=== PATIENT | female | born 1940 | race Caucasian/White ===

== ENCOUNTER → 2024-08-14 12:55 | Outpatient (REF) | payer MEDICARE, SELFPAY | LOC: HWRAD 12:55 | PROVIDERS: ATTENDING PHYSICIAN Internal Medicine | DX: M54.2 Cervicalgia (principal) | CPT/HCPCS: 72050 ==

== ENCOUNTER → 2025-01-01 10:25 | Outpatient (REF) | payer MEDICARE, SELFPAY | LOC: HWRCS 10:25 | PROVIDERS: ATTENDING PHYSICIAN Physician Assistant Medical; FAMILY PHYSICIAN Internal Medicine | DX: I10 Essential (primary) hypertension (principal); I34.0 Nonrheumatic mitral (valve) insufficiency | CPT/HCPCS: 93306 ==

== ENCOUNTER → 2025-06-06 09:50 | Outpatient (REF) | payer MEDICARE, SELFPAY | LOC: HWRAD 09:50 | PROVIDERS: ATTENDING PHYSICIAN Internal Medicine | DX: S40.021A Contusion of right upper arm, initial encounter (principal) | CPT/HCPCS: 73060 ==

== ENCOUNTER 2025-08-02 09:03 | Inpatient (IN) | payer MEDICARE, SELFPAY ==
[2025-07-30 17:59] VITALS: BP 160/106
[2025-07-30 18:44] LABS: Hematocrit 28.1 % (37.0-47.0); Hemoglobin 8.9 g/dL (12.0-16.0); Mean Corp Hgb Conc. 31.7 g/dL (33.0-37.0); Mean Corpuscular Volume 93.0 fL (81.0-99.0); Platelet Count 205 10^3/uL (130-400); Red Cell Dist. Width 15.4 % (11.5-14.5)
[2025-07-30 18:57] LABS: ALT (SGPT) 23 U/L (0-35); AST (SGOT) 36 U/L (14-36); Albumin 4.4 g/dl (3.5-5.0); Alkaline Phosphatase 82 U/L (38-126); Blood Urea Nitrogen 13 mg/dl (7-17); Calcium 9.3 mg/dl (8.4-10.2); Carbon Dioxide 28 mmol/L (22-30); Chloride 92 mmol/L (98-107); Glucose 89 mg/dl (70-99); Potassium 3.8 mmol/L (3.5-5.1); Sodium 131 mmol/L (135-145); Total Protein 7.0 g/dl (6.3-8.2); eGFR 54.87
[2025-07-30 19:08] LABS: Absolute Neutrophils -Man Diff 5.3 10^3/uL (1.4-6.5)
[2025-07-30 19:09] LABS: Normal RBC Morphology Yes; Platelets Checked Yes; Total Cells Counted 100
[2025-07-30 19:10] LABS: D-Dimer 6.81 ug/mlFEU (0.00-0.50)
--- NOTE | 2025-07-30 19:50 | ED.GENMED ---
History of Present Illness
General
Chief Complaint: Breathing Problem
Time Seen by Provider: 07/30/25 19:34
History of Present Illness
History of Present Illness:
Patient presents to the emergency department shortness of breath. Symptoms have been ongoing for the past 1 to 2 weeks. She is postop after a left knee replacement on July 12. She subsequently fell 1 week ago and had a wrist fracture. She
endorses healing of her lower extremity and is ambulating well. Denies any swelling in the leg. Denies chest pain.
Phy Exam
Physical Exam
Physical Exam:
GENERAL APPEARANCE: NAD, pale appearing
EYES lids/conjunctiva normal
EARS/NOSE/THROAT Mucous membranes moist, uvula midline without oral pharyngeal erythema, exudate or swelling
HEAD/NECK normocephalic atraumatic, neck is supple.
RESPIRATORY respiratory effort normal, speaks in full sentences, no accessory muscle use. Lungs clear to auscultation without rhonchi, wheezes, rales
CARDIAC Regular rate and rhythm, no edema.
ABDOMINAL Soft, ND/NT. No pulsatile masses on exam, rebound tenderness, Graves sign or pain over Mcburney's point.
MUSCLES/EXTREMITIES left lower extremity with postoperative changes after knee replacement. There is mild edema. Palpable pedal pulses. Warm. Sensation intact to light touch throughout. 5/5 strength throughout
SKIN Warm, pink and dry. No rashes
NEUROLOGICAL Speech is clear and appropriate. Normal level of consciousness. 5/5 strength in all extremities.
PSYCH Normal mood and affect. Judgement/competence is appropriate
Scores
Heart Failure Risk
Heart Failure Risk Score: Not Applicable
Course
Orders/Labs/Results
Orders:
Orders
07/30/25 18:05
Electrocardiogram (*1) Urgent
Reason for Study: Shortness of Breath
EKG- Treatment ONCE
07/30/25 18:12
Complete Blood Count/With Diff Urgent
Comprehensive Metabolic Panel Urgent
D-Dimer Urgent
Manual Differential Urgent
07/30/25 19:50
CT Chest PE Study Urgent
Comment:
Reason For Exam: sob, +ddimer
07/30/25 22:08
COVID-19 Antigen Urgent
Source: Nasal Swab
Azithromycin 500 mg/250 ml [Zithromax Infusion] 500 mg in 250 ml IV NOW
CefTRIAXone [Rocephin] 1,000 mg IV NOW STA
Abnormal Lab Results
07/30/25
18:12
RBC 3.02 L 10^6/uL
(4.20-5.40)
Hgb 8.9 L g/dL
(12.0-16.0)
Hct 28.1 L %
(37.0-47.0)
MCHC 31.7 L g/dL
(33.0-37.0)
RDW 15.4 H %
(11.5-14.5)
Lymphocytes (Manual) 11 L %
(20-51)
Monocytes (Manual) 25 H %
(2-9)
D-Dimer 6.81 H ug/mlFEU
(0.00-0.50)
Sodium 131 L mmol/L
(135-145)
Chloride 92 L mmol/L
(98-107)
Total Bilirubin 1.4 H mg/dl
(0.2-1.3)
07/30/25 18:12
07/30/25 18:12
Vital Signs
Initial and Last Documented VS:
Initial Vital Signs
Temp Pulse Resp BP Pulse Ox
98.0 F 91 16 160/106 98
07/30/25 17:59 07/30/25 17:59 07/30/25 17:59 07/30/25 17:59 07/30/25 17:59
Last Documented Vital Signs
Temp Pulse Resp BP Pulse Ox
98.0 F 83 20 125/69 97
07/30/25 17:59 07/30/25 20:00 07/30/25 20:00 07/30/25 20:00 07/30/25 20:03
*Pulse Oximetry
SaO2: 98
Oxygen Mode of Delivery: Room air
Patient hypoxic: no
*Critical Care Note
Total Time (30-74mins, 75-104mins- exclusive of procedures): Not Applicable
ED Attending Note
ED Attending Note
ED Attending Note:
Patient presents with dyspnea. She is postop after a knee replacement. She is pale appearing and has a hemoglobin of 8.9. Unclear whether this is new as prior labs are from 2007. She does not appear to have any active bleeding at this time.
Denies rectal bleeding or other external/visible bleeding. EKG showing right bundle branch block which is chronic. D-dimer is elevated. Will CT to rule out pulmonary embolism or other pulmonary causes
CTA negative for pulmonary embolism however showing numerous nodules concerning for inflammatory infectious causes. Patient is nontoxic but does appear pale. Possibilities include symptomatic anemia given her hemoglobin of 8.9. She may also have
some type of inflammatory or infectious source in her lungs. Will cover with antibiotics and admit to the hospitalist.
-
Portions of this chart may have been created with voice recognition software.� Occasional wrong word or��sound alike� substitutions may have occurred due to the inherent limitations of voice recognition software.
Discharge Plan
Departure
Patient Disposition: Admit
Date of Disposition: 07/30/25
Time of Disposition: 22:09
Presentation/result/management discussed w/ accepting MD/DO: Hospitalist
Discharge Problem:
Pneumonia, Anemia
Referrals:
Mayelin Dinero MD [Family Provider, Internal Medicine]
Interventions
Interventions:
*General Assessment Last Done: 07/30/25 17:59
*Neglect/Abuse Screening Last Done: 07/30/25 17:59
ED- Cardiac Assessment Last Done: 07/30/25 20:03
ED- Pulmonary Assessment Last Done: 07/30/25 20:03
Discharge Date and Time
Print Language: URDU
[2025-07-30 20:00] VITALS: BP 125/69
--- NOTE | 2025-07-30 22:12 | HPS.HSE ---
Addendum entered and electronically signed by Robert Edwards, DO 07/30/25 23:39:
Addendum:
Regarding abnormal EKG as outpatient - EKG here shows bifascicular block. Same seen on outpatient EKG, along with limb lead placement error causing abnormality.
No other / prior EKGs available for comparison.
Monitor on telemetry overnight for any abnormality.
No complaints of chest pain, palpitations, etc.
Addendum entered and electronically signed by Robert Edwards, DO 07/30/25 23:35:
Patient seen and examined independently. Agree with findings and plan as set forth by RUSS Robertson.
Patient is an 85y F with PMH significant for hypertension, RA and mild dementia who presents to ED from her PCP office. Patient states that she had L TKA done at [facility] on 07/12. She states that she was doing well until she started to feel
more SOB about one week ago. She noted dyspnea with exertion / activity. No chest pain or palpitations. No cough or fevers / chills.
Patient had a fall on Wednesday and landed on her L side. She suffered a L wrist fracture, was again sen at [facility] and had a splint placed.
Today she was seen by her PCP and reported the complaint of dyspnea. EKG was done in the office which was reportedly abnormal and patient was sent to the ED for evaluation.
At the time of my examination patient complains of pain in the R hip / groin / anterior thigh. There is pain with passive flexion and rotation of the hip.
She states that she had a prior fall (late May) and landed on her R side.
She has no other complaints at present and appears in no acute distress.
Ass:
SOB / Fatigue
Normocytic Anemia - Unknown Type / Chronicity
RBBB / Abnormal EKG
Right Hip Pain
Left Wrist Fracture
s/p L TKA (07/12/25)
Pulmonary Nodules
Benign Hypertension
RA
Mild Dementia
Plan:
Observe overnight for further evaluation and treatment.
Heme negative stool in the ED. ? baseline Hgb. No recent / noted blood loss (? due to recent surgery).
Obtain outpatient baseline for comparison.
Check anemia work-up including iron studies, B12, etc.
Follow for changes in H&H.
X-ray of the R hip given complaint or pain / prior fall. She is s/p remote R MARISABEL.
PT evaluation.
Multiple pulmonary nodules seen on CT. No fever, leukocytosis, cough or other infectious symptoms.
Would observe off of further abx for now and monitor for any fever or new symptoms.
Follow-up / repeat imaging as an outpatient per pulm nodule protocols.
Hold HCTZ given mild hyponatremia.
Continue other home medications.
Maintain L wrist splint and follow-up with Ortho at [facility] as planned.
Original Note:
Family Physician
-
Family Physician: Mayelin Dinero
Chief Complaint
-
shortness of breath and fatigue
History of Present Illness
Patient is a 85-year-old female with past medical history significant for hypertension, hyperlipidemia, GERD, rheumatoid arthritis, dementia and depression who presented to [facility] ED for evaluation of increased shortness of breath and increased
fatigue. Patient was seen today in primary care office and was told EKG was abnormal and referred to ED for evaluation. Patient reports she has had increased shortness of breath and increased fatigue that started approximately 1 week ago. She also
notes she sustained a fall on Wednesday07/27/25 and broke her left wrist. Patient also noted recent left knee replacement on 07/12/2025 at [facility]. Patient does acknowledge dark stools for last day or two, hemeoccult negative. Patient denies any recent
illness, fever, chills, cough, chest pain, palpitations, nausea, vomitng, constipation or diarrhea.
Medical History
Past Medical History
Past Medical History: Reports Other
Additional Past Medical History:
hypertension
hyperlipidemia
GERD
rheumatoid arthritis
dementia
depression
osteopenia
polymyalgia rheumatica
Past Surgical History: Reports Other
Additional Past Surgical History:
section
Tonsillectomy
left carpal tunnel release 12/2017
left small trigger finger release 12/2017
right carpal tunnel release
right trigger finger release
Sinusitis-endoscopic sinus surgery (2012),deviated septum-septoplasty
Spinal stenosis-Back surgery
osteoarthritis-Knee replacement RIGHT - Tomas Sanders 05/2016
lumbar stenosis-Spinal fusion, lumbar; L4-5 decompression- Vicente Paris
Spinal stenosis-Back surgery - Vicente Paris (had 2 separate surgeries)
Rotator cuff tear (right)-arthroscopy 09/2002
Breast lump-Lumpectomy (2006)-Maciel Sky (RIGHT)
Left Cataract surgery- Dr. Adalberto Kimball
Right cataract- Dr. Adalberto Kimball 11/2018
Left shoulder surgery- arthroscopic tendon repair by Eliazar 01/2019
total right hip replacement on 10/08/2021 by Thong Banks at [facility] 09/2021
Middle finger right hand , unlocking surgery 06/29/2022
Left total hip replacement 07/2023
LEFT TOTAL KNEE REPLACEMENT - [facility] Garcia Jun 2025
Social History
Tobacco: Non-smoker
Alcohol: Occasional
Drug: None
Living: Alone
Family History
Family History: Other (Sister: Parkinson's Disease )
Allergies / Home Medications
Allergies reflects when Allergies were last updated in [facility].
Home Medications with original date entered in [facility]
Allergy/Medication List:
Allergies
Allergy/AdvReac Type Severity Reaction Status Date / Time
No Known Allergies Allergy Verified 07/30/25 18:04
Home Medications
aspirin 81 mg tablet,delayed release 81 mg PO BID 07/30/25
bupropion HCl 150 mg 24 hr tablet, extended release 150 mg PO DAILY 07/30/25
cranberry fruit 450 mg tablet (cranberry) 450 mg PO HS 07/30/25
donepezil 5 mg tablet 5 mg PO HS 07/30/25
escitalopram oxalate 20 mg tablet 20 mg PO DAILY 07/30/25
hydrochlorothiazide 12.5 mg tablet 12.5 mg PO DAILY 07/30/25
hydroxychloroquine 200 mg tablet 200 mg PO BID 07/30/25
qlqonjmlztcw-rtpguqwt-oumkrj tablet 1 tab PO DAILY 07/30/25
omeprazole 20 mg capsule,delayed release 20 mg PO DAILY 07/30/25
simvastatin 40 mg tablet 40 mg PO HS 07/30/25
Review of Systems
-
History Source: Patient
Constitutional: Reports Fatigue; Denies Fever or Chills
EENT: Denies Sore Throat
Respiratory: Reports Trouble Breathing (shortness of breath ); Denies Cough or Hemoptysis
Cardiac: Denies Chest Pain, Diaphoresis, Palpitations or Syncope
Abdomen/GI: Reports Black Stools (dark stools for 1-2 days ); Denies Abdominal Pain, Nausea, Vomiting or Diarrhea
: Denies Dysuria, Frequency or Urgency
Musculoskeletal: Denies Joint Pain
Skin: Denies Rash
Neurological: Denies Dizzy, Headache, Weakness or Numbness
Endocrine: Denies Polyuria or Polydipsia
Physical Exam
Vital Signs
Vital Signs
Temp Pulse Resp BP Pulse Ox
98.0 F 83 20 125/69 97
07/30/25 17:59 07/30/25 20:00 07/30/25 20:00 07/30/25 20:00 07/30/25 20:03
Physical Exam
General: Well Developed, Well Nourished, No Apparent Distress, Comfortable and Conversant
HEENT: NormoCephalic, Moist mucous membranes, PERRLA, Nose Appears Normal and Ears Appear Normal
Respiratory: Clear; No Wheezes, Rales, Rhonchi or Non Labored Respirations
Cardiac: S1/S2 and Regular Rhythm; No Murmur
GI: Soft, Non Tender, Non Distended and Normal Bowel Sounds
Rectal: Hem Negative
Musculoskeletal: No Clubbing, No Cyanosis and Other (LLE with mild edema, appears likely postoperative changes )
Skin: Warm, IV/Catheter Site and Other (Left knee incisional wound well approximated )
Neuro: Awake and AO x 3
Psych: Calm and Apparent Dementia
Laboratory Results
-
07/30/25 18:12
07/30/25 18:12
Laboratory Results
Total Bilirubin 1.4 mg/dl (0.2-1.3) H 07/30/25 18:12
AST 36 U/L (14-36) 07/30/25 18:12
ALT 23 U/L (0-35) 07/30/25 18:12
Alkaline Phosphatase 82 U/L (38-126) 07/30/25 18:12
Data Reviewed
-
CT Scan: Report Reviewed by me (Chest: Many tiny pulmonary nodules likely post inflammatory/infectious in etiology. Metastatic disease not excluded. The [facility] Pulmonary Nodule Advisory Board will be automatically informed of the
findings. No pulmonary embolus. Ascending aortic ectasia Simple left renal cyst. Too sm)
Medical Tests (Nuc Med, Echo, EKG etc): Report Reviewed by me (EKG: NORMAL SINUS RHYTHM RIGHT BUNDLE BRANCH BLOCK LEFT ANTERIOR FASCICULAR BLOCK BIFASCICULAR BLOCK )
Lab Data: Labs Reviewed by me (hgb 8.9, hct 28.1, d-dimer 6.81, Na 131)
Impression/Plan
-
IMPRESSION/PLAN:
#shortness of breath and fatigue 2/2 infectious process vs. DVT/PE vs. symptomatic anemia
increased shortness of breath and increased fatigue for 1 week
dark stools for 1-2 days
hgb 8.9, hct 28.1, d-dimer 6.81, Na 131
Hemoccult: negative
EKG: NORMAL SINUS RHYTHM
RIGHT BUNDLE BRANCH BLOCK
LEFT ANTERIOR FASCICULAR BLOCK
BIFASCICULAR BLOCK
Chest CT: Many tiny pulmonary nodules likely post inflammatory/infectious in etiology. Metastatic disease not excluded. The [facility] Pulmonary Nodule Advisory Board will be automatically
informed of the findings.
No pulmonary embolus.
Ascending aortic ectasia
Simple left renal cyst.
Too small to characterize hypodense hepatic lesion likely a cyst or hemangioma.
If the patient has emphysema, patient should be assessed for an annual low dose lung cancer CT program, as pulmonary emphysema is an independent risk factor for lung cancer.
- Admit to telemetry
- trend H/H
- check iron studies
- heme test stools with bowel movement
- Consult PT
#hypertension
- continue hydrochlorothiazide
#hyperlipidemia
- continue simvastatin
#GERD
- continue omeprazole
#rheumatoid arthritis
- continue hydroxychloroquine
#dementia
- continue donepezil
#depression
- continue bupropion and escitalopram
Code status: full code
DVT prophylaxis: SCDs
[2025-07-30] MEDS: ROCEPHIN 1000 MG IV (22:19)
[2025-07-30] MEDS: ZITHROMAX INFUSION 250 IV (22:20)
[2025-07-30] MEDS: PERCOCET 5/325 1 TABLET PO (22:37)
[2025-07-31] VITALS (7 sets, daily range): BP systolic 112–134; BP diastolic 60–71; PULSE 96; BMI 26.9
[2025-07-31 01:55] LABS: COVID-19 Antigen Negative (Negative)
--- NOTE | 2025-07-31 02:55 | PTCARENOTE ---
Pt arrived from ED via stretcher accompanied by ED staff. AAOx3. Ambulatory to bed. VSS w/o complaints of pain. Placed on tele. Pt oriented to room with call corcoran within reach.
[2025-07-31 06:51] LABS: Hematocrit 24.4 % (37.0-47.0); Hemoglobin 7.7 g/dL (12.0-16.0); Mean Corp Hgb Conc. 31.6 g/dL (33.0-37.0); Mean Corpuscular Volume 93.5 fL (81.0-99.0); Platelet Count 158 10^3/uL (130-400); Red Cell Dist. Width 15.4 % (11.5-14.5)
[2025-07-31 07:04] LABS: Blood Urea Nitrogen 11 mg/dl (7-17); Calcium 8.5 mg/dl (8.4-10.2); Carbon Dioxide 28 mmol/L (22-30); Chloride 97 mmol/L (98-107); Estimated Creatinine Clearance 45 ml/min; Glucose 72 mg/dl (70-99); Iron 23 ug/dl (37-170); Potassium 3.3 mmol/L (3.5-5.1); Sodium 133 mmol/L (135-145); eGFR > 60.00
[2025-07-31 07:13] LABS: Total Iron Binding Capacity 208 ug/dl (265-497)
[2025-07-31 07:33] LABS: Ferritin 244.0 ng/ml (11.1-264.0)
[2025-07-31 08:05] LABS: Folate > 20.0 ng/ml (2.76-20); Vitamin B12 880 pg/ml (239-931)
--- NOTE | 2025-07-31 09:55 | PTOTSP ---
Pt is able to ambulate in hallway without an assistive device with steady gait, no dizziness or lightheadedness. No acute PT needs were identified. May benefit from home care services as pt had recent TKA and a more recent fall causing left wrist
fx. Anticipate pt returning home when medically stable. PT will sign off acutely.
[2025-07-31] MEDS: LEXAPRO 20 MG PO (10:28)
[2025-07-31] MEDS: PLAQUENIL 200 MG PO ×2 (10:28→20:54)
[2025-07-31] MEDS: PROTONIX 40 MG PO (10:28)
[2025-07-31] MEDS: WELLBUTRIN XL (24 hour extended release) 150 MG PO (10:28)
[2025-07-31] MEDS: ASPIR LOW (ENTERIC COATED) 81 MG PO ×2 (10:28→20:54)
--- NOTE | 2025-07-31 13:43 | W.PN.HOSP.TC ---
Today's Communication/Plan
-
Assessment / Plan
Assessment / Plan
NAD
Scleral Anicteric
MMM
No JVD
CTABL
RRR, S1/S2
Soft, NT, ND, BS+
Warm, Dry
Shortness of breath without unclear etiology
COVID flu negative
CT PE study negative for PE
Anemia present which could be contributing however without evidence of acute active bleeding
Iron deficiency anemia
Every other day iron supplementation
Fecal occult negative per documentation
Hypertension
Continue hydrochlorothiazide
Hyperlipidemia
Continue statin
GERD
Continue PPI
Rheumatoid arthritis
Continue hydroxychloroquine
Dementia
Continue donepezil
Depression
Continue bupropion and escitalopram
Unclear if there is anything else left to do in the hospital. As there is been no further episodes of shortness of breath noted however have tried twice to get in contact with her son Dale however have been unsuccessful [facility]
Anticipated Discharge: Within 24 hours
Subjective/Interval History
-
Date of Service: July 31, 2025
Seen and examined. No new complaints. No acute overnight events.
Reviewed physical therapy note tolerated PT
Objective Data
-
Labs:
Laboratory Results
07/31/25
06:12
WBC 4.9
Hgb 7.7 L
Hct 24.4 L
Plt Count 158 D
Sodium 133 L
Potassium 3.3 L
Chloride 97 L
Carbon Dioxide 28
BUN 11
Creatinine 0.8
Glucose 72
Calcium 8.5
Vital Signs:
Vital Signs
Temp Pulse Resp BP Pulse Ox
98.2 F 89 16 117/69 95
07/31/25 11:10 07/31/25 11:10 07/31/25 11:10 07/31/25 11:10 07/31/25 11:10
--- NOTE | 2025-07-31 14:18 | CM ---
IA completed. ROBERTO given. Lives alone but will be going home to her son's house. IA based on Son's home. No insecurities identified. Congfirmed PCP, Rx, insurance and drug coverage
It is a 2 story home with 1 step at the entrance to the home and 13 steps inside to the 2nd floor.. Pt states that her son will be making a bedroom on the first floor.
She has been independent at home with ADLs.
Hx of HH, possibly at [facility]. REceived PT from them
Hx of SNF, unknown facility
Pt wishes to return home if possible. Has asked for [employer] resources: given
Plan: DC to son's home post discharge.
[2025-07-31] MEDS: KCL 40 MEQ PO (14:20)
[2025-07-31] MEDS: ARICEPT 5 MG PO (20:55)
[2025-07-31] MEDS: LIPITOR 20 MG PO (20:55)
[2025-08-01] VITALS (7 sets, daily range): BP systolic 111–149; BP diastolic 67–90; PULSE 90–91
--- NOTE | 2025-08-01 03:00 | DOWNTIME ---
There was a [employer] Downtime on 08/01/2025 from 0100 to 08/01/2025 at 0255. Downtime documentation of patient's care, including medication administrations, has been reconciled in the electronic record per guidelines. Refer to the
patient's paper chart under the miscellaneous tab to see printed paper medication records and downtime forms.
[2025-08-01] MEDS: LEXAPRO 20 MG PO (08:49)
[2025-08-01] MEDS: ASPIR LOW (ENTERIC COATED) 81 MG PO (08:50)
[2025-08-01] MEDS: WELLBUTRIN XL (24 hour extended release) 150 MG PO (08:50)
[2025-08-01] MEDS: PROTONIX 40 MG PO (08:50)
[2025-08-01] MEDS: PLAQUENIL 200 MG PO ×2 (08:50→20:28)
[2025-08-01] MEDS: FEOSOL 325 MG PO (09:34)
[2025-08-01] MEDS: KCL 270 MEQ IV (09:34)
--- NOTE | 2025-08-01 10:25 | CON.GI ---
Addendum entered and electronically signed by Lio Oropeza DO 08/01/25 15:29:
I saw and examined the patient.
The [employer] OPERATOR's note was reviewed and I agree with the note.
Comment: Ms. Griffin is a 85 y.o female with a past medical history of HTN, HLD, PMR, RA, breast cancer (s/p prior lumpectomy/XRT) and multiple orthopedic surgeries with recent TKR 07/12 who initially presented to the ED with SOB and fatigue. Patient
previously denied any overt bloody and/or dark stools on admission and reportedly had prior (-) hemoccult testing in the past. Found to have KIRA with a Hgb 8s (unknown baseline). However, the next day on admission she was found to have dark stools.
She denies any prior history of a colonoscopy or prior EGD in the past. She has been taking aspirin twice daily for her recent TKR but denies any significant NSAID use. Otherwise, she denies any unintentional weight loss, abdominal
pain/discomfort, dysphagia, nausea/vomiting or other concerning symptoms from a GI standpoint. Hemoglobin appears stable and without signs to suggest brisk GI bleeding. Clinically, suspect possible gastroduodenal erosions versus PUD given her
recently increased ASA dose. Differential also includes underlying AVMs versus potential malignancy as she told me that she never had a prior colonoscopy. Did discuss the potential need to pursue a colonoscopy if her EGD is grossly unremarkable
and she is quite hesitant to pursue this and wanted more time to think about this / discuss with family. Reasonable for now to proceed with a diagnostic EGD for further evaluation but again need to consider potential colonoscopy if her EGD is
negative for further evaluation of her iron deficiency anemia and previous darker stools despite heme-negative testing. For now, we will continue IV PPI, IV iron along with serial monitoring of her Hgb. Transfuse as needed. Okay for diet as
tolerated and keep NPO at midnight.
Discussed with primary internal medicine team. GI will continue to follow. Please call with any questions or concerns.
Original Note:
Consultation
-
Date/Time Consultation Requested: 08/01/25 1015
Date/Time Consultation Performed: 08/01/25 1025
Requesting Provider: Haider Cruz MD
Performing Provider: RUSS Wu Bryan Stone, DO
Reason for Consultation: anemia
Medical History
Chief Complaint / HPI
Chief Complaint: dark stool
History of Present Illness:
Pt is a 85yo with hx breast CA with prior lumpectomy and radiation, GERD, HTN, hyperlipidemia, PMR, RA, retinal artery embolism, depression, mild dementia, multiple orthopedic surgeries including recent TKR 07/12, sinus surgery with admission to
ER with shortness of breath for 1-2 weeks and also fall with arm fracture week prior to admission. She did not recall all the details or recent fall. On admission she is noted with hbg 8.9 then drop to 7.7 with normal BUN and black stools. Her
prior hbg was 12.4 on 06/06/[address] PE study was neg for PE.
Pt currently admits to dark stools that started today. She denies odynophagia, dysphagia, GERD, nausea, vomiting, dizziness, abdominal pain, diarrhea, constipation, or red blood in stools. Hx colonoscopy years ago did not recall EGD. Pt was
unsure of medications after recent TKR. Pt also noted with Na 131 and K down to 3.3 after admission. Iron studies with chronic disease and mild liver function elevation with AST 55, ALT 37.
Past Medical History
Past Medical History: Cancer (breast CA- lumpectomy and radiation), GERD, HTN, Hypercholesterolemia, Psychiatric (depression, mild dementia ) and Other (cataracts, UTI, PMR, RA, retinal artery embolism)
Past Surgical History: , Gynecological (lumpectomy), Orthopedic (carpel tunnel release, trigger finger release, multiple spinal surgeries, TKR, THR), Tonsilectomy and Other (sinus surgery, septoplasty, cataract surgery)
Social History
Tobacco: Non-Smoker
Alcohol: Occasional (martini daily)
Drug: None
Personal:
Living: Alone
Employment: Retired
Family History
Family History: Other (no family hx colon CA or polyps)
Allergies / Home Medications
Allergy/AdvReac Type Severity Reaction Status Date / Time
No Known Allergies Allergy Verified 07/30/25 18:04
�Medication �Instructions �Recorded
aspirin 81 mg tablet,delayed 81 mg PO BID Blood Clot 07/30/25
release Prevention/Tx
bupropion HCl 150 mg 24 hr tablet, 150 mg PO DAILY Mental 07/30/25
extended release Health/Anxiety
cranberry fruit 450 mg tablet 450 mg PO HS Supplement 07/30/25
(cranberry)
donepezil 5 mg tablet 5 mg PO HS Mental Health/Anxiety 07/30/25
escitalopram oxalate 20 mg tablet 20 mg PO DAILY Mental 07/30/25
Health/Anxiety
hydrochlorothiazide 12.5 mg tablet 12.5 mg PO DAILY Fluid 07/30/25
Retention/Swelling
hydroxychloroquine 200 mg tablet 200 mg PO BID Autoimmune Disorder 07/30/25
iykdpqdhhvat-smbfkwsq-hwmqxg tablet 1 tab PO DAILY Supplement 07/30/25
omeprazole 20 mg capsule,delayed 20 mg PO DAILY GERD 07/30/25
release
simvastatin 40 mg tablet 40 mg PO HS High Cholesterol 07/30/25
Review of Systems
-
Unable to obtain full review of systems at this time due to: Dementia (mild )
History Source: Patient and Family
Constitutional: Reports No Symptoms
EENT: Reports No Symptoms
Respiratory: Reports No Symptoms
Cardiac: Reports No Symptoms
Abdomen/GI: Reports Black Stools
: Reports No Symptoms
Musculoskeletal: Reports Other (recent TKR 07/12, + recent fall with arm fracture )
Skin: Reports Other (LE rash with bruising last few months )
Neurological: Reports Weakness
Endocrine: Reports No Symptoms
Hematologic/Lymphatic: Reports Bleeding
Vital Signs
Temp Pulse Resp BP Pulse Ox
98.1 F 84 16 128/70 97
08/01/25 07:38 08/01/25 07:38 08/01/25 07:38 08/01/25 07:38 08/01/25 08:00
Physical Exam
Exam
General: Well Developed, Well Nourished and Other (pale appearing )
HEENT: Normocephalic and Anicteric
Respiratory: Other (mild dyspnea at rest)
Cardiac: Regular Rhythm
GI: Soft, Non Tender and Non Distended
Rectal: Other (dark stool per staff )
Musculoskeletal: No Clubbing, No Cyanosis and Other (left arm with cast and some swelling )
Skin: Other (LE bruising with rash and bruising around TKR)
Neuro: Awake, Alert and Other (occasional forgetfulness )
Psych: Calm
Results
WBC 4.9 10^3/uL (4.8-10.8) 07/31/25 06:12
Hgb 7.7 g/dL (12.0-16.0) L 07/31/25 06:12
Hct 24.4 % (37.0-47.0) L 07/31/25 06:12
MCV 93.5 fL (81.0-99.0) 07/31/25 06:12
Plt Count 158 10^3/uL (130-400) D 07/31/25 06:12
Sodium 133 mmol/L (135-145) L 07/31/25 06:12
Potassium 3.3 mmol/L (3.5-5.1) L 07/31/25 06:12
Chloride 97 mmol/L (98-107) L 07/31/25 06:12
Carbon Dioxide 28 mmol/L (22-30) 07/31/25 06:12
BUN 11 mg/dl (7-17) 07/31/25 06:12
Creatinine 0.8 mg/dL (0.6-1.0) 07/31/25 06:12
Calcium 8.5 mg/dl (8.4-10.2) 07/31/25 06:12
Total Bilirubin 1.4 mg/dl (0.2-1.3) H 07/30/25 18:12
AST 36 U/L (14-36) 07/30/25 18:12
ALT 23 U/L (0-35) 07/30/25 18:12
Alkaline Phosphatase 82 U/L (38-126) 07/30/25 18:12
Diagnostic Image Results:
07/30- CT chest PE
no PE, Many tiny pulmonary nodules likely post inflammatory/infectious in etiology. Metastatic disease not excluded. The [facility]od[facility] Advisory Board will be automatically informed of the findings.
Ascending aortic ectasia
Simple left renal cyst.
Too small to characterize hypodense hepatic lesion likely a cyst or hemangioma.
Prior GI Procedures:
EGD: none
Colonoscopy: ? years ago
Assessment / Plan
-
a 85yo with hx breast CA with prior lumpectomy and radiation, GERD, HTN, hyperlipidemia, PMR, RA, retinal artery embolism, depression, mild dementia, multiple orthopedic surgeries including recent TKR 07/12, sinus surgery with admission to ER with
shortness of breath for 1-2 weeks and also fall with arm fracture week prior to admission. She did not recall all the details or recent fall. On admission she is noted with hbg 8.9 then drop to 7.7 with normal BUN and black stools. Her prior
hbg was 12.4 on 06/06/[address] PE study was neg for PE. Pt currently admits to dark stools that after admission.Hx colonoscopy years ago did not recall EGD. Pt was unsure of medications after recent TKR. Pt also noted with Na 131
and K down to 3.3 after admission. Iron studies with chronic disease and mild liver function elevation with AST 55, ALT 37.
-shortness of breath on admission
-anemia with dark stool after admission( iron studies with chronic disease but was on iron therapy)
-recent TKR 07/12
-s/p fall with arm fracture prior to admission
-LE rash with bruising
-mild AST/ALT elevation
-hyponatremia/hypokalemia
other med problems:
breast CA with prior lumpectomy and radiation, GERD, HTN, hyperlipidemia, PMR, RA, retinal artery embolism, depression, mild dementia, multiple orthopedic surgeries
PLAN:
etiology of anemia related to blood loss with recent surgery vs GI loss with recent dark stools vs other
trend hbg and stool record, BUN remains normal
hbg trend 8.9-7.7-8.7 without transfusion
I spoke and updated son and left message for daughter in law to verify post TKR medication regiment to confirm if recent NSAID use
t/c EGD in AM-- son will assist with consent if needed with hx mild dementia
cont diet for today
cont Protonix daily
hold PO iron prior to EGD -- ok to resume on discharge
ok for ASA as needed currently on ASA BID (? post -op)
replete electrolytes per medical team
NSAID avoidance
-
-
Thank you for consultation and allowing me to participate in the patient's care. Please call the [employer] GI physician during the after hours with any questions or concerns.
[2025-08-01 10:28] LABS: Hematocrit 27.8 % (37.0-47.0); Hemoglobin 8.7 g/dL (12.0-16.0); Mean Corp Hgb Conc. 31.3 g/dL (33.0-37.0); Mean Corpuscular Volume 90.6 fL (81.0-99.0); Platelet Count 218 10^3/uL (130-400); Red Cell Dist. Width 15.6 % (11.5-14.5)
[2025-08-01 10:37] LABS: ALT (SGPT) 37 U/L (0-35); AST (SGOT) 55 U/L (14-36); Albumin 3.7 g/dl (3.5-5.0); Alkaline Phosphatase 61 U/L (38-126); Total Protein 6.4 g/dl (6.3-8.2)
--- NOTE | 2025-08-01 13:24 | W.PN.HOSP.TC ---
Today's Communication/Plan
-
Monitor hemoglobin
GI consulted, for symptomatic anemia, dark stool
Assessment / Plan
Assessment / Plan
NAD
Scleral Anicteric
MMM
No JVD
CTABL
RRR, S1/S2
Soft, NT, ND, BS+
Warm, Dry
#Symptomatic anemia
#Shortness of breath
� Likely secondary to anemia
� Hemoglobin noted to be 12 in March
� Treat underlying issues
� COVID flu negative
�CT PE study negative for PE
#Acute blood loss anemia
#Iron deficiency anemia
�Black stool today
�GI consulted
� Transfuse for hemoglobin goal greater than 7
� Trend CBC
#Hypokalemia
Monitor and replete
#Hyponatremia
� Mild
� Monitor with resuscitation
#Hypertension
Hold antihypertensives in setting of possible GI bleed
#Hyperlipidemia
Continue statin
#GERD
Continue PPI
#Rheumatoid arthritis
Continue hydroxychloroquine
#Dementia
Continue donepezil
#Depression
Continue bupropion and escitalopram
Anticipated Discharge: 24 - 48 hours
Subjective/Interval History
-
Date of Service: August 01, 2025
hgb dropped
Objective Data
-
Labs:
Laboratory Results
08/01/25 08/01/25
09:36 09:56
WBC 3.2 L
Hgb 8.7 L
Hct 27.8 L
Plt Count 218 D
Total Bilirubin 0.9
AST 55 H
ALT 37 H
Alkaline Phosphatase 61
Vital Signs:
Vital Signs
Temp Pulse Resp BP Pulse Ox
98.3 F 88 16 120/68 99
08/01/25 11:41 08/01/25 11:41 08/01/25 11:41 08/01/25 11:41 08/01/25 11:41
I&O
07/31/25 08/01/25 08/02/25
06:59 06:59 06:59
Intake Total 460 / 460
Balance 460 / 460
Review of Systems
-
History Source: Patient
All other systems: Not reviewed unless documented
Data Reviewed
-
Diagnostic Radiology: Report Reviewed by me
CT Scan: Report Reviewed by me
Labs: Labs Reviewed by me
--- NOTE | 2025-08-01 17:11 | CM ---
Spoke with pt and dil in room .
Pt may go home with to her sons home.
Pt requested [facility] Referral placed in care port.
PLAN Home with [facility] fax [phone]
--- NOTE | 2025-08-01 17:13 | CM ---
CM consult entered in [facility] for VN.
[2025-08-01] MEDS: LIPITOR 20 MG PO (20:28)
[2025-08-01] MEDS: ARICEPT 5 MG PO (20:28)
[2025-08-02] VITALS (13 sets, daily range): BP systolic 95–138; BP diastolic 51–82
[2025-08-02 06:39] LABS: Hematocrit 27.1 % (37.0-47.0); Hemoglobin 8.5 g/dL (12.0-16.0); Mean Corp Hgb Conc. 31.4 g/dL (33.0-37.0); Mean Corpuscular Volume 90.9 fL (81.0-99.0); Platelet Count 217 10^3/uL (130-400); Red Cell Dist. Width 15.7 % (11.5-14.5)
[2025-08-02 06:50] LABS: INR 1.05; PT 14.2 Sec (11.4-14.6)
[2025-08-02 07:18] LABS: Blood Urea Nitrogen 7 mg/dl (7-17); Calcium 9.0 mg/dl (8.4-10.2); Carbon Dioxide 28 mmol/L (22-30); Chloride 102 mmol/L (98-107); Estimated Creatinine Clearance 52 ml/min; Glucose 93 mg/dl (70-99); Potassium 4.4 mmol/L (3.5-5.1); Sodium 137 mmol/L (135-145); eGFR > 60.00
[2025-08-02] MEDS: PLAQUENIL 200 MG PO ×2 (07:18→21:37)
[2025-08-02] MEDS: PROTONIX 40 MG PO (07:18)
[2025-08-02] MEDS: LEXAPRO 20 MG PO (07:18)
[2025-08-02] MEDS: WELLBUTRIN XL (24 hour extended release) 150 MG PO (07:19)
--- NOTE | 2025-08-02 13:02 | W.PN.HOSP.TC ---
Today's Communication/Plan
-
PPI
CLD
C-Scope tomorrow
monitor hgb
restart ASA
Assessment / Plan
Assessment / Plan
NAD
Scleral Anicteric
MMM
No JVD
CTABL
RRR, S1/S2
Soft, NT, ND, BS+
Warm, Dry
#Symptomatic anemia
#Shortness of breath
� Likely secondary to anemia
� Hemoglobin noted to be 12 in March
� Treat underlying issues
� COVID flu negative
�CT PE study negative for PE
-see plan below
#Acute blood loss anemia
#Iron deficiency anemia
�Black stool noted
�GI consulted
� Transfuse for hemoglobin goal greater than 7
� Trend CBC
-EGD today, gastric erosion with no stigmata of recent bleeding. Suspect secondary to aspirin. Biopsied.
-Plan for Colonoscopy tomorrow
-PPI
-CLD
-Can resume ASA 81mg BID
#recent TKR 07/12
-Restart Asa 81 mg BID for clot prevention
#Hypokalemia
Monitor and replete
#Hyponatremia
� Mild
� Monitor with resuscitation
#Hypertension
Hold antihypertensives in setting of possible GI bleed
#Hyperlipidemia
Continue statin
#GERD
Continue PPI
#Rheumatoid arthritis
Continue hydroxychloroquine
#Dementia
Continue donepezil
#Depression
Continue bupropion and escitalopram
Anticipated Discharge: 24 - 48 hours
Subjective/Interval History
-
Date of Service: August 02, 2025
EGD with single, well-healed gastric erosion with no stigmata of recent bleeding, suspect secondary to aspirin. Biopsied. Otherwise no acute bleeding noted on EGD.
Objective Data
-
Labs:
Laboratory Results
08/02/25
06:30
WBC 3.1 L
Hgb 8.5 L
Hct 27.1 L
Plt Count 217
PT 14.2
INR 1.05
Sodium 137
Potassium 4.4 D
Chloride 102
Carbon Dioxide 28
BUN 7
Creatinine 0.7
Glucose 93
Calcium 9.0
Vital Signs:
Vital Signs
Temp Pulse Resp BP Pulse Ox
97.2 F 85 14 127/78 97
08/02/25 11:17 08/02/25 11:17 08/02/25 11:17 08/02/25 11:17 08/02/25 11:17
I&O
08/01/25 08/02/25 08/03/25
06:59 06:59 06:59
Intake Total 460 / 460 730 / 730
Balance 460 / 460 730 / 730
Review of Systems
-
History Source: Patient
All other systems: Not reviewed unless documented
Data Reviewed
-
Diagnostic Radiology: Report Reviewed by me
CT Scan: Report Reviewed by me
Labs: Labs Reviewed by me
[2025-08-02] MEDS: NULYTELY SOLUTION 4 LITERS PO (15:12)
--- NOTE | 2025-08-02 15:16 | CM ---
Spoke with pt explained IMM letter Pt stated understanding. IMM signed on chart.
Pt may go home or with to her sons home.
Pt requested [facility] Referral placed in care port.
PLAN Home with [facility] fax [phone]
please verify address at dc
[2025-08-02] MEDS: ARICEPT 5 MG PO (21:36)
[2025-08-02] MEDS: LIPITOR 20 MG PO (21:36)
[2025-08-02] MEDS: ASPIR LOW (ENTERIC COATED) 81 MG PO (21:37)
[2025-08-03] VITALS (8 sets, daily range): BP systolic 18–124; BP diastolic 48–80
--- NOTE | 2025-08-03 06:39 | PTCARENOTE ---
Pt aaox3 on bed alarm for safety. Pt NPO from [place] for colonoscopy,pt is having multiple yellow loose stools.Pt denies of any other problems & resting comfortably.Plan of care continued.
[2025-08-03 08:04] LABS: Hematocrit 27.8 % (37.0-47.0); Hemoglobin 8.6 g/dL (12.0-16.0); Mean Corp Hgb Conc. 30.9 g/dL (33.0-37.0); Mean Corpuscular Volume 94.9 fL (81.0-99.0); Platelet Count 204 10^3/uL (130-400); Red Cell Dist. Width 15.5 % (11.5-14.5)
[2025-08-03 08:38] LABS: Blood Urea Nitrogen 4 mg/dl (7-17); Calcium 8.8 mg/dl (8.4-10.2); Carbon Dioxide 27 mmol/L (22-30); Chloride 101 mmol/L (98-107); Estimated Creatinine Clearance 52 ml/min; Glucose 76 mg/dl (70-99); Potassium 4.0 mmol/L (3.5-5.1); Sodium 135 mmol/L (135-145); eGFR > 60.00
--- NOTE | 2025-08-03 12:29 | W.PN.HOSP.TC ---
Addendum entered and electronically signed by Haider Cruz MD 08/04/25 13:47:
Outpatient Capsule endoscopy
F/u GI outpatient
[id number]
Original Note:
Today's Communication/Plan
-
PPI
avoid NSAIDS
outpt capsule endoscopy
F/u GI, PCP outpt
F/u cbc cmp outpt
Assessment / Plan
Assessment / Plan
NAD
Scleral Anicteric
MMM
No JVD
CTABL
RRR, S1/S2
Soft, NT, ND, BS+
Warm, Dry
#Symptomatic anemia
#Shortness of breath, improved
� Likely secondary to anemia
� Hemoglobin noted to be 12 in March
� Treat underlying issues
� COVID flu negative
�CT PE study negative for PE
-see plan below
#Acute blood loss anemia
#Iron deficiency anemia
�Black stool noted
�GI consulted
� Transfuse for hemoglobin goal greater than 7
� Trend CBC
-EGD today, gastric erosion with no stigmata of recent bleeding. Suspect secondary to aspirin. Biopsied.
- Colonoscopy 08/03, diverticulosis, polyps removed.
� If hemoglobin remains stable, can discharge with close follow-up with GI
��Because Outpatient�Follow-Up with [facility] Outpatient
� Avoid NSAIDs
-PPI
-Can resume ASA 81mg BID
#recent TKR 07/12
-Restart Asa 81 mg BID for clot prevention for limited time as Rxed
#Hypokalemia
Monitor and replete
#Hyponatremia
� Mild
� Monitor with resuscitation
#Hypertension
resume hctz
#Hyperlipidemia
Continue statin
#GERD
Continue PPI
#Rheumatoid arthritis
Continue hydroxychloroquine
#Dementia
Continue donepezil
#Depression
Continue bupropion and escitalopram
More than 30 minutes spent in discharge including
Final examination of the patient
Summarizing hospital stay
Instructions for continuing care to all relevant caregivers
Preparation of discharge records, prescriptions, and referral forms
Total time spent (in minutes): 36
Anticipated Discharge: Today
Subjective/Interval History
-
Date of Service: August 03, 2025
No acute events overnight, hemoglobin stable
Objective Data
-
Labs:
Laboratory Results
08/03/25
07:13
WBC 3.4 L
Hgb 8.6 L
Hct 27.8 L
Plt Count 204
Sodium 135
Potassium 4.0
Chloride 101
Carbon Dioxide 27
BUN 4 L
Creatinine 0.7
Glucose 76
Calcium 8.8
Vital Signs:
Vital Signs
Temp Pulse Resp BP Pulse Ox
97.4 F 75 18 105/51 98
08/03/25 12:00 08/03/25 12:00 08/03/25 12:00 08/03/25 12:00 08/03/25 12:00
I&O
08/02/25 08/03/25 08/04/25
06:59 06:59 06:59
Intake Total 730 / 730 680 / 680
Balance 730 / 730 680 / 680
Review of Systems
-
History Source: Patient
All other systems: Not reviewed unless documented
Data Reviewed
-
Diagnostic Radiology: Report Reviewed by me
CT Scan: Report Reviewed by me
Labs: Labs Reviewed by me
--- NOTE | 2025-08-03 12:33 | W.DS.TRANS ---
DC Summary - Perinatal Instructor
-
Discharge Instructions:
Discharge Diagnosis/Procedures Acute blood loss anemia
Diet As tolerated
Activity As tolerated
Blood Work cbc and bmp in 3-5 days with pcp
Others Tests Outpatient capsule endoscopy
F/u pathology outpt
Instructions:
Stand-Alone Forms:
Changes to Home Medications: Yes
Discharge Medications:
DC Medications w/original date entered in [employer]
aspirin 81 mg tablet,delayed release 81 mg PO BID Blood Clot Prevention/Tx 07/30/25
bupropion HCl 150 mg 24 hr tablet, extended release 150 mg PO DAILY Mental Health/Anxiety 07/30/25
cranberry fruit 450 mg tablet (cranberry) 450 mg PO HS Supplement 07/30/25
donepezil 5 mg tablet 5 mg PO HS Mental Health/Anxiety 07/30/25
escitalopram oxalate 20 mg tablet 20 mg PO DAILY Mental Health/Anxiety 07/30/25
hydrochlorothiazide 12.5 mg tablet 12.5 mg PO DAILY Fluid Retention/Swelling 07/30/25
hydroxychloroquine 200 mg tablet 200 mg PO BID Autoimmune Disorder 07/30/25
eokvcieaqjpe-odfaoznm-kixszf tablet 1 tab PO DAILY Supplement 07/30/25
simvastatin 40 mg tablet 40 mg PO HS High Cholesterol 07/30/25
pantoprazole 40 mg tablet,delayed release 40 mg PO DAILY 30 days #30 tabs 08/03/25
Home Medication Changes
pantoprazole 40 mg tablet,delayed release 40 mg PO DAILY 30 days #30 tabs 08/03/25
Pending Results: No
[2025-08-03] MEDS: WELLBUTRIN XL (24 hour extended release) 150 MG PO (13:18)
[2025-08-03] MEDS: LEXAPRO 20 MG PO (13:18)
[2025-08-03] MEDS: PLAQUENIL 200 MG PO (13:18)
[2025-08-03] MEDS: PROTONIX 40 MG PO (13:18)
[2025-08-03 14:50] LABS: Hemoglobin 8.4 g/dL (12.0-16.0)
--- NOTE | 2025-08-03 16:15 | VNURNOTE ---
Home Health Liaison spoke with patient's son to discuss [facility] nurse/therapy, visits, schedule and homebound status. Son is agreeable and understands that visits at home will be 2-3 x per week to assess and teach medical management. Son is aware
that [facility] will contact them for start of care within a week after discharge from .
[facility] referral completed in [facility] Port.
--- NOTE | 2025-08-03 16:20 | CM ---
MD entered order for discharge.
Spoke with pt and marcus Tejada in room.
Pt said she will go to her home and her son will stay with her all day and night .
[facility] declined Referral [facility] changed to [facility] as per patient request
PLAN Home with [facility]
== END 2025-08-03 17:10 | disposition home health service (06) | DRG 812 ==
LOC: 4 EAST ACU 09:03
PROVIDERS: Emergency Medicine; Internal Medicine Gastroenterology; Nurse Practitioner Adult Health; Nurse Practitioner Family; ADMITTING PHYSICIAN Hospitalist; ATTENDING PHYSICIAN Internal Medicine; CONSULT PHYSICIAN Student in an Organized Health Care Education/Training Program; EMERGENCY PHYSICIAN Emergency Medicine; FAMILY PHYSICIAN Internal Medicine
PROC: 0DB78ZX Excision of Stomach, Pylorus, Via Natural or Artificial Opening Endoscopic, Diagnostic (ICD-10-PCS; 2025-08-02)
PROC: 0DB68ZX Excision of Stomach, Via Natural or Artificial Opening Endoscopic, Diagnostic (ICD-10-PCS; 2025-08-02)
PROC: 0W3P8ZZ Control Bleeding in Gastrointestinal Tract, Via Natural or Artificial Opening Endoscopic (ICD-10-PCS; 2025-08-03)
PROC: 0DBK8ZZ Excision of Ascending Colon, Via Natural or Artificial Opening Endoscopic (ICD-10-PCS; 2025-08-03)
DX: D62 Acute posthemorrhagic anemia (principal); F03.A3 Unspecified dementia, mild, with mood disturbance; F03.A4 Unspecified dementia, mild, with anxiety; E87.1 Hypo-osmolality and hyponatremia; K57.30 Diverticulosis of large intestine without perforation or abscess without bleeding; D12.2 Benign neoplasm of ascending colon; K25.9 Gastric ulcer, unspecified as acute or chronic, without hemorrhage or perforation; Z96.653 Presence of artificial knee joint, bilateral; I10 Essential (primary) hypertension; M06.9 Rheumatoid arthritis, unspecified; F32.A Depression, unspecified; K21.9 Gastro-esophageal reflux disease without esophagitis; E78.00 Pure hypercholesterolemia, unspecified; M85.80 Other specified disorders of bone density and structure, unspecified site; M35.3 Polymyalgia rheumatica; Z96.643 Presence of artificial hip joint, bilateral; Z98.42 Cataract extraction status, left eye; Z98.41 Cataract extraction status, right eye; Z79.82 Long term (current) use of aspirin; Z82.0 Family history of epilepsy and other diseases of the nervous system; E87.6 Hypokalemia; Z85.3 Personal history of malignant neoplasm of breast; D50.9 Iron deficiency anemia, unspecified; I77.810 Thoracic aortic ectasia; N28.1 Cyst of kidney, acquired; Z98.1 Arthrodesis status; Z79.899 Other long term (current) drug therapy; Z11.52 Encounter for screening for COVID-19
CPT/HCPCS: 71275; 73502; 80048; 80053; 80076; 82607; 82728; 82746; 83540; 83550; 85018; 85025; 85027; 85379; 85610; 87811; 88305; 88342; 93005; 96374; 96375; 97162; 99285; Q9967

== ENCOUNTER 2025-09-10 15:02 | Emergency (ER) | payer MEDICARE, SELFPAY ==
[2025-09-10 15:10] VITALS: BP 165/88
--- NOTE | 2025-09-10 16:21 | ED.GENMED ---
History of Present Illness
General
Chief Complaint: Cast Check
Source: patient and family
Exam Limitations: none
Time Seen by Provider: 09/10/25 16:07
Nursing documentation reviewed up to this point in time: agreed with
History of Present Illness
History of Present Illness:
85-year-old female with a past medical history as noted presents to the ER seeking to have a cast removed. Patient has a cast on her left wrist for a fracture that she suffered in early July. It was casted on [address] Arreguin. She
was set to see him in the office this Wednesday to have the cast removed. She says over the past week or so she noticed some increased swelling in her left thumb and her thumb is bothering her a bit more and so she feels that the cast needs to be
removed more urgently. She tried to reschedule her appointment for today but was unable and so she came to the ER to be assessed. She denies any other acute complaints today.
Review of Systems
Review of Systems
All Other Systems: ROS reviewed and negative except as documented in HPI and ROS
Musculoskeletal: Reports other (Left thumb swelling and pain)
Phy Exam
Physical Exam
Physical Exam:
General: Well appearing and non-toxic
HEENT: protecting airway
Neck: appears supple
CV: No evidence of cyanosis
Resp: No accessory muscle use
Abd: Non-distended
Extremities: No deformities; she has a short arm cast in place on the left wrist; thumb is exposed very mildly swollen but pink with good capillary refill, rest of digits appear normal
Neuro: Alert
Psych: Normal affect
Skin: Intact
Scores
Heart Failure Risk
Heart Failure Risk Score: Not Applicable
Heart Score for Chest Pain Patients
STEMI patient?: Not applicable
Withdrawal Assessment of Alcohol
Withdrawal Assessment Completed?: Not applicable
Course
Vital Signs
Initial and Last Documented VS:
Initial Vital Signs
Temp Pulse Resp BP Pulse Ox
36.6 C 94 20 165/88 97
09/10/25 15:10 09/10/25 15:10 09/10/25 15:10 09/10/25 15:10 09/10/25 15:10
Last Documented Vital Signs
Temp Pulse Resp BP Pulse Ox
36.6 C 94 20 165/88 97
09/10/25 15:10 09/10/25 15:10 09/10/25 15:10 09/10/25 15:10 09/10/25 16:25
Procedures
Splinting/Sling Placement
Left Wrist:
Procedure completed by: Dillon Heath MD
Pre-splint extermity exam: neurovascular intact
Type of splint: universal wrist
Splint material: universal
Splint checked by provider?: Yes
MDM/Problems Addressed
Differential Diagnosis Includes:
Cast check
MDM/Problems Addressed:
85-year-old female presents to the ER seeking to have cast removed early. She has a cast for left wrist fracture placed by Dr. Arreguin, set for removal Wednesday but over the past week has had some increased swelling and pain in the thumb and feels
it needs to be taken off more urgently. Her thumb is mildly swollen but has good perfusion/capillary refill. Will discuss with orthopedist but likely cast can be removed a few days early to help alleviate.
Discussed with Ortho�okay to remove cast today, placed in Velcro splint and patient can follow-up in the office. Cast removed uneventfully, vascular exam intact after removal. Placed in a Velcro wrist splint on discharge.
*Pulse Oximetry
SaO2: 97
Oxygen Mode of Delivery: Room air
Patient hypoxic: no (97%)
*Critical Care Note
Total Time (30-74mins, 75-104mins- exclusive of procedures): Not Applicable
Data Reviewed
Source: patient
Patient Management
Discussion with other providers: Currency Counter (Discussed with orthopedist)
ED Attending Note
-
Portions of this chart may have been created with voice recognition software.� Occasional wrong word or��sound alike� substitutions may have occurred due to the inherent limitations of voice recognition software.
Discharge Plan
Departure
Patient Disposition: Home (Routine Discharge)
Date of Disposition: 09/10/25
Time of Disposition: 16:26
Patient with high blood pressure during this ER visit?: Yes
Discharge Problem:
Cast removal
Instructions: Wrist fracture
Prescriptions:
No Action
donepezil 5 mg tablet
5 mg PO HS
aspirin 81 mg tablet,delayed release (DR/EC)
81 mg PO BID
simvastatin 40 mg tablet
40 mg PO HS
hydroxychloroquine 200 mg tablet
200 mg PO BID
yqvhsjophlxa-hfwnndsv-yoyxnh Tablet
1 tab PO DAILY
escitalopram oxalate 20 mg tablet
20 mg PO DAILY
bupropion HCl 150 mg tablet extended release 24 hr
150 mg PO DAILY
hydrochlorothiazide 12.5 mg tablet
12.5 mg PO DAILY
cranberry 450 mg Tablet
450 mg PO HS
pantoprazole 40 mg Tablet,Delayed Release (Dr/Ec)
40 mg PO DAILY 30 Days Qty: 30 0RF
Referrals:
Mayelin Dinero MD [Family Provider, Internal Medicine]
Smooth Arreguin MD [Active, Orthopedics] - Call in 1-3 days for appt
Activity Restrictions/Additional Instructions:
Thank you for visiting the Emergency Department at [facility].
1. Please schedule a follow up appointment as directed. Call first thing tomorrow morning to make an appointment.
2. If indicated, please take your medications as instructed and indicated on discharge paperwork.
3. If any of your symptoms do not improve, or persist, or become more severe within 6-12 hours, please return to the emergency department for further care.
4. Please return to the emergency department if you develop a headache, neck pain/stiffness, fever greater than 100.4F, chest pain, shortness of breath, persistent nausea, vomiting, slurred speech, difficulty walking, numbness/tingling, weakness,
signs of infection or any other symptoms that are worrisome to you.
Please call [phone] if you have any questions.
Interventions
Interventions:
*ED COVID-19 Vaccine History Last Done: 09/10/25 15:10
*ED Influenza Vaccine History Last Done: 09/10/25 15:10
[facility] Fall Risk Assessment Tool Last Done: 09/10/25 16:04
*Risk Screen - Suicide (C-SSRS) Last Done: 09/10/25 15:10
*Nursing Disposition Last Done: 09/10/25 16:41
ED-Peripheral Vascular Assessment Last Done: 09/10/25 16:32
ED-Skin Assessment Last Done: 09/10/25 16:32
Discharge Date and Time
Discharge Date/Time: 09/10/25 16:42
Print Language: TRINIDADIAN
== END 2025-09-10 16:42 | disposition home or self-care (01) ==
LOC: EMR 15:02
PROVIDERS: EMERGENCY PHYSICIAN Emergency Medicine; FAMILY PHYSICIAN Internal Medicine
DX: S62.102A Fracture of unspecified carpal bone, left wrist, initial encounter for closed fracture (principal); M79.89 Other specified soft tissue disorders; M25.532 Pain in left wrist; X58.XXXA Exposure to other specified factors, initial encounter; R03.0 Elevated blood-pressure reading, without diagnosis of hypertension
CPT/HCPCS: 99283; 29125